=== PATIENT | male | born 1980 | race Caucasian/White ===

== ENCOUNTER → 2023-12-24 17:43 | Outpatient (REF) | payer OTHER, SELFPAY | LOC: RAD 17:43 | PROVIDERS: ATTENDING PHYSICIAN Nurse Practitioner Family | DX: D89.89 Other specified disorders involving the immune mechanism, not elsewhere classified (principal); M79.603 Pain in arm, unspecified | CPT/HCPCS: 72040 ==

== ENCOUNTER 2024-01-27 14:35 | Outpatient (RCR) | payer OTHER, SELFPAY | END 2024-01-27 23:59 | disposition home or self-care (01) | LOC: RPT 14:35 | PROVIDERS: ATTENDING PHYSICIAN Nurse Practitioner Family | DX: M79.603 Pain in arm, unspecified (principal); M54.2 Cervicalgia; Z73.6 Limitation of activities due to disability | CPT/HCPCS: 97110; 97112; 97162 ==

== ENCOUNTER → 2024-01-29 20:09 | Outpatient (REF) | payer OTHER, SELFPAY | LOC: MRI 20:09 | PROVIDERS: ATTENDING PHYSICIAN Nurse Practitioner Family | DX: M79.603 Pain in arm, unspecified (principal); M54.2 Cervicalgia | CPT/HCPCS: 72156; A9575 ==

== ENCOUNTER 2024-02-12 18:57 | Outpatient (RCR) | payer OTHER, SELFPAY | END 2024-02-12 23:59 | disposition home or self-care (01) | LOC: RPT 18:57 | PROVIDERS: ATTENDING PHYSICIAN Nurse Practitioner Family | DX: M54.2 Cervicalgia (principal); M79.603 Pain in arm, unspecified; Z73.6 Limitation of activities due to disability | CPT/HCPCS: 97010; 97110; 97140 ==

== ENCOUNTER → 2024-02-19 15:01 | Outpatient (REF) | payer OTHER, SELFPAY | LOC: HWRAD 15:01 | PROVIDERS: ATTENDING PHYSICIAN Nurse Practitioner Family | DX: G91.9 Hydrocephalus, unspecified (principal) | CPT/HCPCS: 70450 ==

== ENCOUNTER → 2024-06-18 11:36 | Outpatient (REF) | payer OTHER, SELFPAY | LOC: DHSLP 11:36 | PROVIDERS: ATTENDING PHYSICIAN Internal Medicine Cardiovascular Disease | DX: G47.30 Sleep apnea, unspecified (principal); R06.83 Snoring | CPT/HCPCS: 95800 ==

== ENCOUNTER → 2024-09-03 17:23 | Outpatient (REF) | payer OTHER, SELFPAY | LOC: RAD 17:23 | PROVIDERS: ATTENDING PHYSICIAN Nurse Practitioner Family | DX: R14.0 Abdominal distension (gaseous) (principal); R10.9 Unspecified abdominal pain | CPT/HCPCS: 74176 ==